=== PATIENT | male | born 1955 | race Caucasian/White ===

== ENCOUNTER 2022-04-14 20:00 | Outpatient (CLI) | payer MEDICARE, SELFPAY | END 2022-04-14 20:01 | disposition home or self-care (01) | LOC: SLEEP 04-15 07:55 | PROVIDERS: Visit Provider Internal Medicine | DX: R40.0 Somnolence (principal); R53.83 Other fatigue; R06.83 Snoring; G47.33 Obstructive sleep apnea (adult) (pediatric) | CPT/HCPCS: 95810 ==

== ENCOUNTER → 2023-01-05 09:51 | Outpatient (BNVA) | payer MEDICARE, SELFPAY | PROVIDERS: PCP Family Medicine; Visit Provider Otolaryngology | DX: G47.33 Obstructive sleep apnea (adult) (pediatric) (principal); E66.9 Obesity, unspecified; J34.2 Deviated nasal septum; J34.3 Hypertrophy of nasal turbinates; J35.1 Hypertrophy of tonsils; K13.79 Other lesions of oral mucosa; F17.210 Nicotine dependence, cigarettes, uncomplicated; Z68.38 Body mass index [BMI] 38.0-38.9, adult | CPT/HCPCS: 99203 ==